=== PATIENT | male | born 1945 | race Caucasian/White ===

== ENCOUNTER 2020-11-08 07:23 | Emergency (ER) | payer MEDICARE, OTHER ==
[~2020-11-08] VITALS: Ht 177.8 cm; Wt 104.5 kg
[2020-11-08 07:28] VITALS: Ht 177.8 cm; Wt 104.5 kg
[2020-11-08] MEDS ORDERED: METOPROLOL TART25 MG PO (07:30)
[2020-11-08 08:11] LABS: CALC OSMOLALITY 283 mosm/kg (275-300); CARBON DIOXIDE 27.9 mmol/L (21.0-32.0); CHLORIDE - SERUM 105 mmol/L (98-107); CREATININE - SERUM 1.3 mg/dL (0.6-1.3); GLUCOSE 118 mg/dL (74-106); POTASSIUM - SERUM 4.2 mmol/L (3.5-5.1); SODIUM 141 mmol/L (136-145); UREA NITROGEN 18 mg/dL (7-18); eGFR NON AFRICAN AMERICAN 57 mL/min (90-120)
[2020-11-08 08:14] LABS: BASOPHILS 0.6 % (0-2); HEMATOCRIT 46.2 % (42.0-54.0); HEMOGLOBIN 15.3 g/dL (13.5-17.5); IMMATURE GRANULOCYTES 0.2 % (0-5); LYMPHOCYTE ABS# 1.27 10x3/uL (1.32-3.57); LYMPHOCYTES 19.8 % (15-50); MCH 30.8 pg (26.0-34.0); MCHC 33.1 g/dL (31.0-37.0); MCV 93.1 fL (80.0-100.0); MEAN PLATELET VOLUME 10.3 fL (7.4-10.4); NEUTROPHIL ABS# 4.28 10x3/uL (1.78-5.38); NEUTROPHILS 66.4 % (40-80); PLATELET COUNT 224 10x3/uL (130-400); RBC 4.96 10x6/uL (4.20-6.10); RDW 13.6 % (11.5-14.5); WBC 6.4 10x3/uL (4.8-10.8)
[2020-11-08 08:28] LABS: ALBUMIN 3.4 g/dL (3.4-5.0); ALKALINE PHOSPHATASE 108 U/L (30-120); ALT (SGPT) 23 U/L (10-68); BILIRUBIN - TOTAL 0.32 mg/dL (0.2-1.3); CREATINE KINASE 59 UL (21-232); PROTEIN - SERUM 7.2 g/dL (6.4-8.2)
[2020-11-08 08:29] LABS: TROPONIN-I < 0.017 ng/mL (0.000-0.060)
[2020-11-08] MEDS ORDERED: AUGMENTIN 875-11 TAB PO (11:16)
[2020-11-08] MEDS ORDERED: MECLIZINE HCL25 MG PO (11:16)
[2020-11-08] MEDS ORDERED: ZOFRAN ODT4 MG/UDTAB PO (11:16)
[2020-11-08 11:18] VITALS: BP 137/89
== END 2020-11-08 11:19 | disposition home or self-care (01) ==
LOC: D.ER 07:23
PROVIDERS: Emergency Medicine
DX: R42 Dizziness and giddiness (principal); I10 Essential (primary) hypertension; R11.0 Nausea